=== PATIENT | female | born 1980 | race Two or more races ===

== ENCOUNTER 2024-01-26 06:57 | Emergency (ER) | payer OTHER ==
[~2024-01-26] VITALS: Ht 160 cm; Wt 56.7 kg
[2024-01-26 07:13] VITALS: TEMP 98.1
--- NOTE | 2024-01-26 07:15 | NUR ---
bibfam c/o right leg pain radiating from thigh down s/p back surgery "pins and needles" right foot
[2024-01-26] MEDS ORDERED: MORPHINE SULFATE INJ 2 MG/ML DISP.SYRIN ONE ×2 (07:40→07:43)
--- NOTE | 2024-01-26 07:40 | NUR ---
Dr. Avelina Gordillo was notified
[2024-01-26] MEDS ORDERED: MORPHINE SULFATE INJ 4 MG/ML DISP.SYRIN ONE (07:43)
[2024-01-26] MEDS: MORPHINE SULFATE INJ 2 MG/ML DISP.SYRIN IM ONE (07:59)
[2024-01-26] MEDS ORDERED: OXYC-128 PO (08:34)
[2024-01-26] MEDS ORDERED: METH4TAB PO (08:34)
[2024-01-26] MEDS ORDERED: METH-647 PO (08:34)
--- NOTE | 2024-01-26 09:10 | NUR ---
Patient discharged to home in stable condition. Written and verbal after care instructions given. Patient verbalizes understanding of instruction.
[2024-01-26 09:11] VITALS: BP 124/78; O2SAT 96
== END 2024-01-26 09:12 | disposition home or self-care (01) ==
LOC: ER 06:59
DX: G89.18 Other acute postprocedural pain (principal); M79.651 Pain in right thigh; Z98.890 Other specified postprocedural states
CPT/HCPCS: 99283; 96372; J2270 ×2

== ENCOUNTER 2024-09-28 07:31 | Emergency (ER) | payer OTHER ==
[~2024-09-28] VITALS: Ht 160 cm; Wt 54.0 kg
[~2024-09-28 07:31] MED LIST: METH-647 PO; METH4TAB PO; OXYC-128 PO
[2024-09-28 08:08] LABS: BASOPHILS % (AUTO) 0.2 % (0.0-2.0); EOSINOPHILS % (AUTO) 0.4 % (0.0-6.0); HEMATOCRIT 38 % (33-45); HEMOGLOBIN 12.6 g/dL (11.5-14.8); LYMPHOCYTES # (AUTO) 0.9 K/uL (0.8-4.8); MEAN CORPUSCULAR HEMOGLOBIN 30 PG (26.0-33.0); MEAN CORPUSCULAR HGB CONC 33 g/dl (31.0-36.0); MEAN CORPUSCULAR VOLUME 90 fL (82-100); MONOCYTES # (AUTO) 0.8 K/uL (0.1-1.30); MONOCYTES % (AUTO) 8.2 % (2.0-12.0); NEUTROPHILS # (AUTO) 7.9 K/uL (1.8-8.9); NEUTROPHILS % (AUTO) 82.2 % (43.0-81.0); PLATELET COUNT (AUTO) 203 K/uL (150-450); RED BLOOD CELL COUNT(AUTO) 4.19 MIL/uL (4.0-5.2); RED CELL DISTRIBUTION WIDTH 13.6 % (11.5-15.0); WHITE BLOOD COUNT (AUTO) 9.7 K/uL (4.3-11.0)
[2024-09-28 08:09] LABS: APPEARANCE,URINE CLEAR (CLEAR); BILIRUBIN,URINE NEGATIVE (NEGATIVE); BLOOD, URINE TRACE-INTA Ery/uL (NEGATIVE); COLOR,URINE YELLOW (YELLOW); KETONES,URINE NEGATIVE (NEGATIVE); LEUKOCYTE ESTERASE ,URINE NEGATIVE (NEGATIVE); NITRITE, URINE NEGATIVE (NEGATIVE); PH,URINE 7.5 (5.0-8.0); PROTEIN,URINE NEGATIVE (NEGATIVE); UGLUCOSE NEGATIVE (NEGATIVE); UROBILINOGEN,URINE 0.2 EU/dL (0.2)
[2024-09-28 08:11] LABS: PREGNANCY TEST URINE QUAL NEGATIVE (NEGATIVE)
[2024-09-28 08:14] LABS: CALCIUM, SERUM 8.5 mg/dL (8.5-10.1); CREATININE 0.7 mg/dL (0.6-1.3); POTASSIUM 4.3 mmol/L (3.5-5.1)
[2024-09-28 08:20] LABS: ALBUMIN 3.4 g/dL (3.4-5.0); BILIRUBIN,DIRECT 0.2 mg/dL (0.0-0.2); BILIRUBIN,TOTAL 0.7 mg/dL (0.2-1.0); TOTAL PROTEIN, SERUM 6.9 g/dL (6.4-8.2)
[2024-09-28 08:23] LABS: ADD URINE CULTURE NO; BACTERIA,URINE Few /HPF (None Seen); WBC,URINE 0-2 /HPF (0-3)
[2024-09-28 08:24] LABS: YEAST,URINE Few /HPF (None Seen)
[2024-09-28] MEDS ORDERED: IBUP-1957 PO (09:24)
[2024-09-28 09:36] VITALS: BP 100/70; TEMP 98.6; O2SAT 97
== END 2024-09-28 09:36 | disposition home or self-care (01) ==
LOC: ER 07:40
DX: R10.2 Pelvic and perineal pain (principal); R10.30 Lower abdominal pain, unspecified
CPT/HCPCS: 36415; 76856-TC; 80048-TC; 80076-TC; 81001; 84703-TC; 85025-TC